=== PATIENT | female | born 1980 | race Caucasian/White ===

== ENCOUNTER 2020-02-13 18:54 | Emergency (ER) | payer OTHER, SELFPAY ==
[2020-02-13 19:35] VITALS: BP 186/101; PULSE 112; RESP 20; TEMP 37.3; O2SAT 99; BMI 24.4
--- NOTE | 2020-02-13 19:41 | ED_ITS ---
HPI - URI/Sore Throat General Chief Complaint: Upper Respiratory Symptoms Stated Complaint: covid symptoms Time Seen by Provider: 02/13/20 19:40 Source: patient Mode of arrival: ambulatory Limitations: no limitations History of Present Illness HPI Narrative: 40-year-old female with past medical history of IBS with multiple allergies to medications presents with 1 day of upper respiratory symptoms, fevers, chest tightness, and nausea. She does have abdominal pain however she has not had a bowel movement 5 days, these symptoms are consistent with her IBS and not the symptoms that she presented for. She has been taking Motrin, last Motrin dose was about an hour ago with moderate effect. She does not report any sick contacts, and does not have any other symptoms at this time MD elicited complaint: fever, cough, rhinorrhea and nasal congestion Onset (ago): day(s) (1) Consistency: constant Severity: moderate Description of mucous: clear and watery Able to tolerate fluids by mouth: Yes Relieving factors: nothing Associated symptoms: fever, myalgias, rhinorrhea and nasal congestion Treatments prior to arrival: ibuprofen Related Data Allergies Allergy/AdvReac Type Severity Reaction Status Date / Time Iodinated Contrast Media Allergy Severe SHORTNESS Unverified 11/19/19 15:40 [CONTRAST, IV] OF BREATH nut - unspecified [nut] Allergy Severe SHOCK Unverified 11/19/19 15:40 latex [LATEX] Allergy Intermediate RASH Unverified 11/19/19 15:40 amoxicillin [AMOXICILLIN] Allergy Unknown DYSPNEA, Unverified 11/19/19 15:40 vision loss penicillin G Allergy Unknown Verified 02/13/18 00:00 Penicillins [PCN] Allergy Unknown VISUAL Unverified 11/19/19 15:40 DISTURBANCES Sulfa (Sulfonamide Allergy Unknown nausea and Unverified 10/23/19 00:00 Antibiotics) vomiting sulfamethoxazole Allergy Unknown UNKNOWN Unverified 11/19/19 15:40 [From BACTRIM] trimethoprim [From BACTRIM] Allergy Unknown UNKNOWN Unverified 11/19/19 15:40 Latex Allergy Unknown redness Uncoded 02/13/18 00:00 latex gloves Allergy Unknown rash Uncoded 10/23/19 00:00 nuts Allergy Unknown Uncoded 10/23/19 00:00 Review of Systems Review of Systems: Constitutional: positive Fever, positive Chills, positive fatigue, positive M alaise ENT/Mouth: positive sore throat, positive runny nose Eyes: No Discharge Cardiovascular: No Chest Pain, positive chest tightness, No SOB Respiratory: No Cough, No Sputum, No Wheezing, No Smoke Exposure, No Dyspnea Gastrointestinal: Positive Nausea, No Vomiting, No Diarrhea, positive constipation Genitourinary: no irregular bleeding, No Dysuria, No Urinary Frequency, No Hematuria, No Urinary Incontinence, No Urgency, No Flank Pain, Musculoskeletal: positive Myalgia Skin: No rash Neuro: No Headache Yes all other systems are reviewed and are negative PENDING SALE TO [facility] Past Medical History Attestation statement: The following information was validated with the patient. Medical History Fibroids IBS (irritable bowel syndrome) Social History Social History Advance Directives: No Advance Directives Information Provided: No Physical Exam Vital Signs: Vital Signs: Last Vital Signs Temp 99.3 F 02/13/20 20:14 Pulse 123 H 02/13/20 20:14 Resp 20 02/13/20 19:35 BP 165/92 H 02/13/20 20:14 Pulse Ox 99 02/13/20 20:14 Body Mass Index 24.4 Appearance: Alert. Oriented X3. No acute distress. Eyes: Pupils equal, round and reactive to light. ENT: Pharynx normal. Neck: Normal inspection. Neck supple. CVS: Tachycardic heart rate and rhythm. Pulses normal. Respiratory: No respiratory distress. Breath sounds normal. Abdomen: Soft and nontender. Skin: Skin warm and dry. Normal skin color. Normal skin turgor. Extremities: No lower extremity edema. Neuro: No motor deficit. No sensory deficit. Course Course Course Narrative: 40-year-old female presents with upper respiratory symptoms. Plan is to treat with COVID swab, chest x-ray. 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 We will wait for chest x-ray, if ches x-ray is positive we will pursue further labs. Patient is COVID positive. Patient verbalized understanding of and agrees to plan of care for COVID-19, is aware of the state and Federal guidelines, and agrees with plan to discharge home. [facility] [place]/Sore Throat Differential Diagnosis Differential diagnosis: Likely upper respiratory infection and viral infection Medical Records Attestation: I reviewed the patient's medical records. Lab Data Attestation: I reviewed the patient's lab results. Labs: Lab Results 02/13/20 Range/Units 19:51 COVID-19 (LIYAH) Positive A (Negative) COVID-19 Clin Com See Note Imaging Data Chest x-ray: Attestation: I personally reviewed and interpreted this imaging study as follows: Radiologist's impression: EXAMINATION: XR CHEST CLINICAL INFORMATION: Chest tightness. Upper respiratory infection symptoms. COMPARISON: Chest radiograph dated 01/05/2019. TECHNIQUE: Frontal view of the chest was obtained. FINDINGS: The lungs are clear. The cardiomediastinal silhouette is normal in size. There is no pleural effusion or pneumothorax. No acute osseous abnormality. XR/XR chest 1V IMPRESSION: No acute cardiopulmonary findings. Discharge Plan Discharge Clinical Impression: Viral infection, COVID-19 Upper respiratory infection Qualifiers: URI type: unspecified viral URI Qualified Code(s): J06.9 - Acute upper respiratory infection, unspecified Patient Disposition: Home, Self-Care Instructions: Upper Respiratory Infection (ED), Viral Syndrome (ED), COVID-19 (Coronavirus Disease 2019) (ED) Additional Instructions: You were evaluated for symptoms consistent with COVID-19. You are positive for COVID-19. Your chest x-ray appears normal. Please maintain social isolation guidelines per state and Federal regulations. It is your responsibility to maintain COVID-19 guidelines. Thank you for choosing this emergency department for evaluation. Please follow-up with primary care physician as needed. Return to the emergency depart ment for any new, concerning, or worsening symptoms.
[2020-02-13 20:11] LABS: COVID-19 Test Positive (Negative); IDNOW Serial# 9DD0AD1C
[2020-02-13 20:14] VITALS: BP 165/92; PULSE 123; TEMP 37.4; O2SAT 99
== END 2020-02-13 21:08 | disposition home or self-care (01) ==
PROVIDERS: Nurse Practitioner Family; Emergency Provider Internal Medicine
DX: U07.1 COVID-19 (principal); J06.9 Acute upper respiratory infection, unspecified
CPT/HCPCS: 71045; 87635; 99283

== ENCOUNTER 2020-02-29 12:47 | Outpatient (REF) | payer OTHER, SELFPAY | END 2020-02-29 12:48 | disposition home or self-care (01) | LOC: HO.LAB 12:47 | PROVIDERS: Visit Provider Internal Medicine | DX: Z20.828 Contact with and (suspected) exposure to other viral communicable diseases (principal) | CPT/HCPCS: C9803; U0003 ==

== ENCOUNTER 2020-03-14 11:20 | Outpatient (REF) | payer OTHER, SELFPAY ==
--- NOTE | 2020-03-14 11:25 | XR_ITS ---
EXAMINATION: XR CHEST CLINICAL INFORMATION: Chest pain COMPARISON: Previous chest x-ray February 2020 TECHNIQUE: 2 views of the chest were obtained. FINDINGS: No significant abnormality is noted involving the heart, lungs, mediastinum, bony thorax or soft tissues. XR/XR chest 2V IMPRESSION: Unremarkable examination.
--- NOTE | 2020-03-14 12:37 | US_ITS ---
EXAMINATION: US VENOUS ULTRASOUND WITH DOPPLER LOWER EXTREMITY, RIGHT CLINICAL INFORMATION: Right leg pain COMPARISON: None TECHNIQUE: Ultrasound of the deep veins is performed from the hip to the calf with compression sonography and color and pulse Doppler assessment. Spectral analysis with color-flow imaging is performed. FINDINGS: There is normal venous compression and respiratory variation and augmented flow. The visualized common femoral vein, superficial femoral vein, profunda femoral vein, popliteal vein, and the trifurcation region shows no evidence of deep venous thrombosis. There is no significant popliteal fossa cyst. US/US venous duplex LE RT IMPRESSION: No DVT demonstrated in the right lower extremity.
== END 2020-03-14 11:21 | disposition home or self-care (01) ==
LOC: HO.HMGCX 11:20
PROVIDERS: PCP Internal Medicine; Visit Provider Physician Assistant
DX: R07.89 Other chest pain (principal); M79.604 Pain in right leg
CPT/HCPCS: 71046; 93971

== ENCOUNTER 2020-05-26 07:02 | Outpatient (REF) | payer OTHER, SELFPAY ==
[2020-05-26 11:17] LABS: Hematocrit 38.6 % (37-47); Hemoglobin 12.3 g/dl (12.0-16.0); Mean Corpuscular HGB Conc 31.9 g/dl (31.0-35.0); Mean Corpuscular Hemoglobin 28.5 pg (27.0-33.0); Mean Corpuscular Volume 89.4 fL (80-98); Mean Platelet Volume 11.4 fL (9.4-12.3); Platelet Count 309 X10*3/uL (160-400); Red Blood Count 4.32 X10*6/uL (4.20-5.50); White Blood Count 8.1 X10*3/uL (4.8-10.8)
[2020-05-26 11:29] LABS: Glucose Urine UA NEG (NEG); Leukocyte Esterase Urine NEG (NEG); Nitrite Urine NEG (NEG); PH 6.5 (5.0-8.0); Urine Blood NEG (NEG); Urine Ketones NEG (NEG); Urine Protein NEG (NEG-TRACE)
[2020-05-26 11:37] LABS: Appearance Urine HAZY; Color Urine YELLOW
[2020-05-26 11:59] LABS: Alanine Aminotransferase 11 U/L (0-31); Albumin Level 4.5 g/dL (3.5-5.0); Alkaline Phosphatase 61 U/L (39-117); Anion Gap 16 (12-20); Aspartate Amino Transferase 14 U/L (5-31); Bilirubin Total 0.5 mg/dL (0.0-1.0); Blood Urea Nitrogen 12 mg/dL (9-16); Calcium 8.8 mg/dL (8.4-10.2); Carbon Dioxide 26 mmol/L (22-29); Chloride 101 mmol/L (96-108); Cholesterol 284 mg/dL; Estimated Glomerular Filt Rate > 60; Glucose Fasting 90 mg/dL (60-99); HDL Cholesterol 57 mg/dL; LDL Cholesterol Calculated 200 mg/dl; Potassium 4.1 mmol/L (3.3-5.1); Sodium 139 mmol/L (135-145); Total Protein 7.2 g/dL (6.5-8.0); Triglycerides 138 mg/dL
[2020-05-26 12:01] LABS: TSH reflex Free T4 1.12 uIU/mL (0.32-4.0)
[2020-05-26 12:29] LABS: Bacteria Urine 1+ /LPF; Mucus Urine 1+ /LPF; RBC Urine 0-2 /HPF (0); Squamous Epithelial Cell Urine 2+ /LPF; WBC Urine 0-2 /HPF (0-4)
== END 2020-05-26 07:03 | disposition home or self-care (01) ==
LOC: HO.HMGCLDS 07:02
PROVIDERS: PCP Internal Medicine; Visit Provider Internal Medicine
DX: Z00.00 Encounter for general adult medical examination without abnormal findings (principal); Z13.220 Encounter for screening for lipoid disorders; Z13.29 Encounter for screening for other suspected endocrine disorder
CPT/HCPCS: 36415; 80053; 80061; 81001; 84443; 85027

== ENCOUNTER 2020-05-27 12:04 | Outpatient (REF) | payer OTHER, SELFPAY ==
--- NOTE | ~2020-05-27 | US_ITS ---
EXAMINATION: US EXTRARENAL NONVASCULAR CLINICAL INFORMATION: Localized swelling, mass and lump. COMPARISON: None TECHNIQUE: Limited ultrasound imaging through the distal thigh suprapatella was performed. Patient indicates palpable lesion. FINDINGS: Limited imaging through the left distal thigh/suprapatellar area reveals an anechoic fluid collection measuring 1.3 x 1.4 x 0.75 cm. This probably lies within the suprapatellar bursa. US/US extremity nonvascular dubois IMPRESSION: Likely suprapatellar bursal fluid collection. It measures maximum 1.4 cm.
== END 2020-05-27 12:05 | disposition home or self-care (01) ==
LOC: HO.HMGCX 12:04
PROVIDERS: Visit Provider Internal Medicine
DX: R22.42 Localized swelling, mass and lump, left lower limb (principal)
CPT/HCPCS: 76882

== ENCOUNTER 2020-10-28 14:06 | Outpatient (REF) | payer OTHER, SELFPAY ==
--- NOTE | ~2020-10-28 | MM_ITS ---
EXAMINATION: MM SCREENING DIGITAL BREAST TOMOSYNTHESIS, BILATERAL CLINICAL INFORMATION: Screening. Asymptomatic. The lifetime risk of breast cancer based on the Tyrer-Cuzick Model is 12%. COMPARISON: Mammography: 10/23/2019, 10/17/2018 (baseline). TECHNIQUE: Digital breast tomosynthesis is performed in both the craniocaudal and mediolateral oblique views along with computer-aided detection (CAD). Synthesized 2D images are generated from the tomosynthesis. FINDINGS: There are scattered areas of fibroglandular density (ACR BI-RADS breast composition Category b). There are no significant masses, abnormal calcifications, or other abnormalities. Parenchymal pattern is similar to prior studies. Again, there are some grouped dermal calcifications bilateral posterior medial breasts. MM/MM tomosynthesis screening BI IMPRESSION: No mammographic evidence of malignancy. ASSESSMENT: BI-RADS 2: Benign RECOMMENDATION: Routine annual mammography screening. This patient's information was entered into a reminder system with a target due date for their next mammogram.
== END 2020-10-28 14:07 | disposition home or self-care (01) ==
LOC: HO.MAMMO 14:06
PROVIDERS: PCP Internal Medicine; Visit Provider Internal Medicine
DX: Z12.31 Encounter for screening mammogram for malignant neoplasm of breast (principal)
CPT/HCPCS: 77063; 77067

== ENCOUNTER 2021-02-04 08:51 | Outpatient (REF) | payer OTHER, SELFPAY ==
[2021-02-04 10:03] LABS: Alanine Aminotransferase 13 U/L (0-31); Albumin Level 4.6 g/dL (3.5-5.0); Alkaline Phosphatase 70 U/L (39-117); Anion Gap 15 (12-20); Aspartate Amino Transferase 17 U/L (5-31); Bilirubin Total 0.8 mg/dL (0.0-1.0); Blood Urea Nitrogen 14 mg/dL (9-16); Calcium 9.6 mg/dL (8.4-10.2); Carbon Dioxide 26 mmol/L (22-29); Chloride 101 mmol/L (96-108); Cholesterol 262 mg/dL; Estimated Glomerular Filt Rate > 60; Glucose Fasting 104 mg/dL (60-99); HDL Cholesterol 43 mg/dL; LDL Cholesterol Calculated 178 mg/dl; Potassium 3.7 mmol/L (3.3-5.1); Sodium 138 mmol/L (135-145); Total Protein 7.7 g/dL (6.5-8.0); Triglycerides 205 mg/dL
== END 2021-02-04 08:52 | disposition home or self-care (01) ==
LOC: HO.LAB 08:51
PROVIDERS: PCP Internal Medicine; Visit Provider Internal Medicine
DX: E78.5 Hyperlipidemia, unspecified (principal); I10 Essential (primary) hypertension
CPT/HCPCS: 36415; 80053; 80061

== ENCOUNTER 2021-07-27 11:36 | Emergency (ER) | payer OTHER, SELFPAY ==
--- NOTE | ~2021-07-27 | XR_ITS ---
EXAMINATION: XR CHEST CLINICAL INFORMATION: Dizziness and difficulty breathing COMPARISON: 03/14/2020 TECHNIQUE: 2 views of the chest were obtained. FINDINGS: Lungs clear. Heart and pulmonary vessels are normal. venetian blind installer leads are present. XR/XR chest 2V IMPRESSION: No active disease.
[2021-07-27 11:47] VITALS: BP 166/72; BP 190/107; PULSE 104; PULSE 84; RESP 18; TEMP 36.6; O2SAT 100; O2SAT 99; BMI 24.7
--- NOTE | 2021-07-27 11:52 | ED.DIZZY ---
HPI - Dizziness General Chief Complaint: Dizziness Stated Complaint: HIGH BP, 184/99 PER EMS Time Seen by Provider: 07/27/21 11:46 Source: patient and EMS Mode of arrival: EMS Limitations: no limitations History of Present Illness HPI Narrative: 41 yo female with history of HTN here with complaints of high blood pressure, feeing dizzy, chest burning with nausea and sweaty feeling which began 2 hours ago while driving. Patient tells me that she forgot to take her blood pressure medication this morning. She denies any associated vomiting, shortness of breath, leg swelling or leg pain. Related Data Previous Rx's Medication Instructions Recorded lisinopril 10 mg tablet 10 mg PO DAILY #90 tab 05/19/21 Allergies Allergy/AdvReac Type Severity Reaction Status Date / Time Iodinated Contrast Media Allergy Severe SHORTNESS Verified 07/27/21 12:18 [CONTRAST, IV] OF BREATH nut - unspecified [nut] Allergy Severe SHOCK Verified 07/27/21 12:18 latex [LATEX] Allergy Intermediate RASH Verified 07/27/21 12:18 amoxicillin [AMOXICILLIN] Allergy Unknown DYSPNEA, Verified 07/27/21 12:18 vision loss penicillin G Allergy Unknown unknown Verified 07/27/21 12:18 Penicillins [PCN] Allergy Unknown VISUAL Verified 07/27/21 12:18 DISTURBANCES Sulfa (Sulfonamide Allergy Unknown nausea and Verified 07/27/21 12:18 Antibiotics) vomiting sulfamethoxazole Allergy Unknown UNKNOWN Verified 07/27/21 12:18 [From BACTRIM] trimethoprim [From BACTRIM] Allergy Unknown UNKNOWN Verified 07/27/21 12:18 Review of Systems Review of Systems: Yes all other systems are reviewed and are negative Constitutional: Constitutional: Reports no additional constitutional complaints, Denies body ache(s), Denies chills, Denies fever(s), Denies headache(s) and Denies weakness Eyes: Eyes: Reports no additional eye complaints and Denies change in vision ENT: Reports system reviewed and no additional complaints, except as documented, Reports dizziness, Denies headache(s), Denies nasal congestion, Denies nasal discharge and Denies neck pain Cardiovascular: Cardiovascular: Reports no additional cardiovascular complaints, Reports chest pain, Denies leg edema and Denies dyspnea Respiratory: Respiratory: Reports no additional respiratory complaints, Denies cough and Denies dyspnea Gastrointestinal: Gastrointestinal: Reports no additional gastrointestinal complaints, Denies abdominal pain, Denies diarrhea, Reports nausea and Denies vomiting Genitourinary: Genitourinary: Reports no additional female genitourinary complaints and Denies urinary incontinence Musculoskeletal: Musculoskeletal: Reports no additional musculoskeletal complaints, Denies back pain, Denies arthralgias, Denies joint swelling, Denies neck pain, Denies numbness and Denies tingling Integumentary/Breasts: Skin/Breast: Reports system reviewed and no additional complaints, except as docu and Denies rash Neurologic: Reports system reviewed and no additional complaints, except as documented, Denies Abnormal speech present, Reports dizziness, Denies headache(s), Denies numbness, Denies tingling and Denies weakness PMFSH Past Medical History Attestation statement: The following information was validated with the patient. Source: old records reviewed and nursing notes reviewed Medical History Annual physical exam Anxiety Fibroids GERD (gastroesophageal reflux disease) HTN (hypertension) Hyperlipidemia IBS (irritable bowel syndrome) Kidney stones Migraine aura without headache Subcutaneous mass of left lower leg Surgical History History of lithotripsy History of skin cancer Family History Family History Father CVD (cardiovascular disease) Mother No problems noted. Maternal Aunt Breast cancer Brother No problems noted. Social History Social History Housing: House Alcohol intake: current Alcohol intake frequency: a few times a week Patient Tobacco Use Status: Former Tobacco user (15 years ago) e-Cigarette/Vaping Use: Never Used Advance Directives: No Advance Directives Information Provided: No Current occupational status: employed Physical Exam Vital Signs: Vital Signs: Last Vital Signs Temp 98.2 F 07/27/21 15:08 Pulse 75 07/27/21 15:08 Resp 16 07/27/21 15:08 BP 148/54 H 07/27/21 15:08 Pulse Ox 98 07/27/21 15:08 BMI result Body Mass Index 24.7 Const: General: cooperative, healthy appearing, comfortable and no acute distress Orientation/consciousness: patient oriented x3 Limitations: no limitations HEENT: Head: Yes normal to inspection Ears: hearing grossly normal bilaterally and TM's normal bilaterally General nose exam: Normal external nose present Face and sinus: Yes normal facial exam Mouth: Normal oral and palatal mucosa present Throat: Yes posterior oropharynx normal, Yes tonsils normal and Yes uvula midline Eyes: General: appearance normal, both eyes and all related structures Pupils: Equal, round and reactive pupils present Neck: Neck: Yes normal visual inspection Chest: Chest palpation & inspection: normal inspection of the chest Resp: Effort & Inspection: normal respiratory effort Auscultation: clear to auscultation bilaterally Cardio: Rate: regular rate Rhythm: regular rhythm Peripheral pulses: Peripheral pulses 2+ throughout GI: Inspection: Yes normal to inspection Palpation (GI): Soft to palpation and nontender Auscultation: normal bowel sounds Back/Spine/Pelvis: Thoracic/Lumbar Spine: thoracic and lumbar spine normal to inspection Skin: General skin exam: no rashes or lesions noted Neuro: General: patient oriented x3, no focal motor deficits and normal sensation to monofilament Cranial nerves: Yes Equal, round and reactive pupils present Cognition (Neuro): normal cognition Speech: No Abnormal speech present Gait exam (Neuro): Normal gait present Motor exam (neuro): 5/5 motor strength present throughout Extrem: General: Yes normal to inspection, Yes no pedal edema and Yes no calf tenderness Course Course Course Narrative: 41 yo female here dizziness, chest burning, nausea, diaphoresis x 2 hrs which started while driving. Will check EKG, labs including troponin x2, CXR Will give ASA, patient dose of lisinopril Reevaluation(s) Reevaluation #1: EKG shows no ischemic changes. Labs and chest x-ray are unremarkable. Plan for repeat troponin. Blood pressure now 142/82. Patient tells me she is feeling improved Time: 13:45 Reevaluation #2: Repeat troponin unchanged. Low concern for ACS with 2- troponins, EKG which shows no ischemic changes. ?symptoms blood pressure related. Recommend follow-up with primary care doctor. Reviewed worrisome signs and symptoms of when to return to the emergency department. Comfortable discharge home. Time: 15:30 MDM - Dizziness MDM Narrative Medical decision making narrative: acs, hypertensive urgency PE-low concern w/ no clinical findings for DVT, no hypoxia, no tachycardia, no tachypnea Medical Records Attestation: I reviewed the patient's medical records. Lab Data Attestation: I reviewed the patient's lab results. Result diagrams: 07/27/21 12:36 07/27/21 12:36 Labs: Lab Results 07/27/21 07/27/21 07/27/21 Range/Units 12:36 12:36 12:36 WBC 6.8 (4.8-10.8) X10*3/uL RBC 4.01 L (4.20-5.50) X10*6/uL Hgb 11.1 L (12.0-16.0) g/dl Hct 34.0 L (37.0-47.0) % MCV 84.8 (80.0-98.0) fL MCH 27.7 (27.0-33.0) pg MCHC 32.6 (31.0-35.0) g/dl RDW 13.7 (11.0-16.0) % Plt Count 259 (160-400) X10*3/uL MPV 10.7 (9.4-12.3) fL Immature Gran % (Auto) 0.4 (0.0-0.4) % Neut % (Auto) 76.7 H (45-73) % Lymph % (Auto) 16.7 L (20-40) % [place] % (Auto) 4.8 (2-11) % Eos % (Auto) 1.0 (0-4) % Baso % (Auto) 0.4 (0-2) % Lymph # (Auto) 1.1 L (1.2-4.9) X10*3/uL [place] # (Auto) 0.3 (0.1-1.2) X10*3/uL Eos # (Auto) 0.1 (0.0-0.4) X10*3/uL Baso # (Auto) 0.0 (0.0-0.2) X10*3/uL Abs Immat Gran (auto) 0.03 (0.00-0.03) X10*3/uL Absolute Neuts (auto) 5.2 (2.0-8.3) x10*3/uL Absolute Nucleated RBC 0.000 (0.0-0.012) X10*3/uL Nucleated RBC % (auto) 0.0 (0.0-0.2) /100WBC PT 11.4 (9.9-13.0) SEC INR 1.0 (0.9-1.1) Sodium 138 (135-145) mmol/L Potassium 3.8 (3.3-5.1) mmol/L Chloride 106 (96-108) mmol/L Carbon Dioxide 24 (22-29) mmol/L Anion Gap 12 (12-20) BUN 8 L (9-16) mg/dL Creatinine 0.68 (0.5-1.4) mg/dL Estim Creat Clear Calc 95.7 Estimated GFR > 60 Random Glucose 102 (60-115) mg/dL Calcium 8.8 D (8.4-10.2) mg/dL Magnesium 2.0 (1.6-2.6) mg/dL Total Bilirubin 0.7 (0.0-1.0) mg/dL Direct Bilirubin 0.2 (0.0-0.5) mg/dL AST 14 (5-31) U/L ALT 11 (0-31) U/L Alkaline Phosphatase 52 D (39-117) U/L Troponin I High Sens (<3.5-17.0) ng/L Total Protein 6.8 (6.5-8.0) g/dL Albumin 4.1 (3.5-5.0) g/dL 07/27/21 07/27/21 Range/Units 12:36 14:41 WBC (4.8-10.8) X10*3/uL RBC (4.20-5.50) X10*6/uL Hgb (12.0-16.0) g/dl Hct (37.0-47.0) % MCV (80.0-98.0) fL MCH (27.0-33.0) pg MCHC (31.0-35.0) g/dl RDW (11.0-16.0) % Plt Count (160-400) X10*3/uL MPV (9.4-12.3) fL Immature Gran % (Auto) (0.0-0.4) % Neut % (Auto) (45-73) % Lymph % (Auto) (20-40) % [place] % (Auto) (2-11) % Eos % (Auto) (0-4) % Baso % (Auto) (0-2) % Lymph # (Auto) (1.2-4.9) X10*3/uL [place] # (Auto) (0.1-1.2) X10*3/uL Eos # (Auto) (0.0-0.4) X10*3/uL Baso # (Auto) (0.0-0.2) X10*3/uL Abs Immat Gran (auto) (0.00-0.03) X10*3/uL Absolute Neuts (auto) (2.0-8.3) x10*3/uL Absolute Nucleated RBC (0.0-0.012) X10*3/uL Nucleated RBC % (auto) (0.0-0.2) /100WBC PT (9.9-13.0) SEC INR (0.9-1.1) Sodium (135-145) mmol/L Potassium (3.3-5.1) mmol/L Chloride (96-108) mmol/L Carbon Dioxide (22-29) mmol/L Anion Gap (12-20) BUN (9-16) mg/dL Creatinine (0.5-1.4) mg/dL Estim Creat Clear Calc Estimated GFR Random Glucose (60-115) mg/dL Calcium (8.4-10.2) mg/dL Magnesium (1.6-2.6) mg/dL Total Bilirubin (0.0-1.0) mg/dL Direct Bilirubin (0.0-0.5) mg/dL AST (5-31) U/L ALT (0-31) U/L Alkaline Phosphatase (39-117) U/L Troponin I High Sens < 3.5 < 3.5 (<3.5-17.0) ng/L Total Protein (6.5-8.0) g/dL Albumin (3.5-5.0) g/dL Imaging Data Chest x-ray: Attestation: I personally reviewed and interpreted this imaging study as follows: Radiologist's impression: [address] [address] XRay Report Signed Patient: Eliazar Morris MR#: [id number] : 1980 Acct:[id number] Age/Sex: 41 / F ADM Date: 07/27/21 Loc: HO.ED Attending Dr: Ordering Physician: Merna Razo NP Date of Service: 07/27/21 Procedure(s): XR chest 2V Accession Number(s): [id number] cc: Merna Razo NP~ EXAMINATION: XR CHEST CLINICAL INFORMATION: Dizziness and difficulty breathing COMPARISON: 03/14/2020 TECHNIQUE: 2 views of the chest were obtained. FINDINGS: Lungs clear. Heart and pulmonary vessels are normal. photoengraving etcher leads are present. XR/XR chest 2V IMPRESSION: No active disease. ECG Data Attestation: I personally reviewed and interpreted this ECG as follows: ECG interpretation date: 07/27/21 ECG interpretation time: 11:58 Interpretation: Normal sinus rhythm with rate 80, normal IN, normal QRS, normal QT Discharge Plan Discharge Clinical Impression: Chest pain, HTN (hypertension) Patient Disposition: Home, Self-Care Instructions: Chest Pain (DC), Chronic Hypertension (DC) Additional Instructions: Your EKG, blood work and chest x-ray shows that you are at low risk for cardiac event You should follow-up with your primary care doctor after todays visit Always take your blood pressure medication Prescriptions: No Action lisinopril 10 mg tablet 10 mg PO DAILY Qty: 90 3RF Referrals: Hiral Calix MD [Primary Care Provider] - 1 week (ER follow-up visit) Interventions: ED Discharge Assessment Last Done: 07/27/21 15:16 Discharge Date/Time: 07/27/21 15:20
--- NOTE | 2021-07-27 11:53 | ECG_ITS ---
Test Reason : chest pain Blood Pressure : / mmHG Vent. Rate : 080 BPM Atrial Rate : 080 BPM P-R Int : 122 ms QRS Dur : 092 ms QT Int : 372 ms P-R-T Axes : 039 053 024 degrees QTc Int : 429 ms Normal sinus rhythm Normal ECG When compared with ECG of 09-OCT-2019 15:32, No significant change was found Referred By: Generic ED Physician Electronically Signed By:James Coats
[2021-07-27 12:17] VITALS: BP 165/76; PULSE 89; RESP 18; O2SAT 100
[2021-07-27] MEDS: lisinopriL 10 MG TABLET PO (12:18)
[2021-07-27] MEDS: Aspirin 81 MG TAB.CHEW 324 MG PO (12:18)
[2021-07-27 12:40] LABS: MANUAL DIFF FLAG NO
[2021-07-27 12:41] LABS: Basophils Percent Auto 0.4 % (0-2); Eosinophils Absolute Auto 0.1 X10*3/uL (0.0-0.4); Hemoglobin 11.1 g/dl (12.0-16.0); Imm Gran Abs Auto 0.03 X10*3/uL (0.00-0.03); Imm Gran Pct Auto 0.4 % (0.0-0.4); Lymphocytes Absolute Auto 1.1 X10*3/uL (1.2-4.9); Lymphocytes Percent Auto 16.7 % (20-40); Mean Corpuscular HGB Conc 32.6 g/dl (31.0-35.0); Mean Corpuscular Hemoglobin 27.7 pg (27.0-33.0); Mean Corpuscular Volume 84.8 fL (80.0-98.0); Mean Platelet Volume 10.7 fL (9.4-12.3); Monocytes Absolute Auto 0.3 X10*3/uL (0.1-1.2); Monocytes Percent Auto 4.8 % (2-11); Neutrophils Absolute Auto 5.2 x10*3/uL (2.0-8.3); Neutrophils Percent Auto 76.7 % (45-73); Platelet Count 259 X10*3/uL (160-400); Red Blood Count 4.01 X10*6/uL (4.20-5.50); Red Cell Distribution Width 13.7 % (11.0-16.0); White Blood Count 6.8 X10*3/uL (4.8-10.8)
[2021-07-27 12:46] LABS: Prothrombin Time 11.4 SEC (9.9-13.0)
[2021-07-27 12:58] VITALS: BP 150/74; PULSE 79; RESP 16; O2SAT 97
--- NOTE | 2021-07-27 12:59 | PC.NURSE ---
Pt alert and oriented x4, calm and cooperative. Pt states chest pain has improved but persists at 3/10, describes pain as burning and states I feel like this is heart burn . Pt reports improvement with dizziness stating it is coming and going in waves . Pt OOB to bathroom, urinated without issues. Ambulated well, stating dizziness improved from earlier. BP trending down now, 150/70. IV intact, not infusing at this time. Pt resting in stretcher, will monitor.
[2021-07-27 13:00] LABS: Alanine Aminotransferase 11 U/L (0-31); Albumin Level 4.1 g/dL (3.5-5.0); Alkaline Phosphatase 52 U/L (39-117); Anion Gap 12 (12-20); Aspartate Amino Transferase 14 U/L (5-31); Bilirubin Direct 0.2 mg/dL (0.0-0.5); Bilirubin Total 0.7 mg/dL (0.0-1.0); Blood Urea Nitrogen 8 mg/dL (9-16); Calcium 8.8 mg/dL (8.4-10.2); Carbon Dioxide 24 mmol/L (22-29); Chloride 106 mmol/L (96-108); Creatinine Clr Calc Pharmacy 95.7; Estimated Glomerular Filt Rate > 60; Glucose Random 102 mg/dL (60-115); Potassium 3.8 mmol/L (3.3-5.1); Sodium 138 mmol/L (135-145); Total Protein 6.8 g/dL (6.5-8.0)
[2021-07-27 13:06] LABS: Troponin-I High Sensitivity < 3.5 ng/L (<3.5-17.0)
[2021-07-27 13:37] VITALS: BP 142/82; PULSE 80; RESP 14; O2SAT 98
[2021-07-27 15:08] VITALS: BP 148/54; PULSE 75; RESP 16; TEMP 36.8; O2SAT 98
[2021-07-27 15:11] LABS: Troponin-I High Sensitivity < 3.5 ng/L (<3.5-17.0)
== END 2021-07-27 15:20 | disposition home or self-care (01) ==
PROVIDERS: Nurse Practitioner Family; Emergency Provider Emergency Medicine; PCP Internal Medicine
DX: R07.9 Chest pain, unspecified (principal); I10 Essential (primary) hypertension; Z79.899 Other long term (current) drug therapy
CPT/HCPCS: 36415; 71046; 80048; 80076; 83735; 84484; 85025; 85610; 93005; 99283; 99284

== ENCOUNTER 2021-08-29 07:14 | Outpatient (REF) | payer OTHER, SELFPAY ==
[2021-08-29 07:48] LABS: Hematocrit 34.7 % (37.0-47.0); Hemoglobin 11.3 g/dl (12.0-16.0); Mean Corpuscular HGB Conc 32.6 g/dl (31.0-35.0); Mean Corpuscular Hemoglobin 27.8 pg (27.0-33.0); Mean Corpuscular Volume 85.5 fL (80.0-98.0); Mean Platelet Volume 10.8 fL (9.4-12.3); Platelet Count 279 X10*3/uL (160-400); Red Blood Count 4.06 X10*6/uL (4.20-5.50); Red Cell Distribution Width 14.2 % (11.0-16.0); White Blood Count 7.5 X10*3/uL (4.8-10.8)
[2021-08-29 08:03] LABS: Appearance Urine HAZY; Color Urine YELLOW; Glucose Urine UA NEG (NEG); Leukocyte Esterase Urine NEG (NEG); Nitrite Urine NEG (NEG); PH 5.5 (5.0-8.0); Specific Gravity - Urine 1.025 (1.005-1.025); Urine Blood NEG (NEG); Urine Ketones NEG (NEG); Urine Protein NEG (NEG-TRACE)
[2021-08-29 08:24] LABS: Bacteria Urine 1+ /LPF; RBC Urine 0 /HPF (0); Squamous Epithelial Cell Urine 2+ /LPF; Urine Talc Crystals TRACE /LPF; WBC Urine 0 /HPF (0-4)
[2021-08-29 08:34] LABS: Alanine Aminotransferase 11 U/L (0-31); Albumin Level 4.1 g/dL (3.5-5.0); Alkaline Phosphatase 65 U/L (39-117); Anion Gap 12 (12-20); Aspartate Amino Transferase 14 U/L (5-31); Bilirubin Total 0.5 mg/dL (0.0-1.0); Blood Urea Nitrogen 16 mg/dL (9-16); Calcium 8.7 mg/dL (8.4-10.2); Carbon Dioxide 26 mmol/L (22-29); Chloride 103 mmol/L (96-108); Cholesterol 227 mg/dL; Estimated Glomerular Filt Rate > 60; Glucose Fasting 95 mg/dL (60-99); HDL Cholesterol 62 mg/dL; LDL Cholesterol Calculated 143 mg/dl; Potassium 4.2 mmol/L (3.3-5.1); Sodium 137 mmol/L (135-145); Total Protein 6.5 g/dL (6.5-8.0); Triglycerides 114 mg/dL
[2021-08-29 08:56] LABS: TSH reflex Free T4 1.45 uIU/mL (0.32-4.0)
== END 2021-08-29 07:15 | disposition home or self-care (01) ==
LOC: HO.LAB 07:14
PROVIDERS: Visit Provider Internal Medicine
DX: E78.5 Hyperlipidemia, unspecified (principal); I10 Essential (primary) hypertension
CPT/HCPCS: 36415; 80053; 80061; 81001; 84443; 85027

== ENCOUNTER 2021-08-31 11:27 | Outpatient (REF) | payer OTHER, SELFPAY | END 2021-08-31 11:28 | disposition home or self-care (01) | LOC: HO.HMGCLDS 11:27 | PROVIDERS: Visit Provider Internal Medicine | DX: R30.0 Dysuria (principal) | CPT/HCPCS: 87086 ==

== ENCOUNTER 2021-10-02 13:57 | Outpatient (REF) | payer OTHER, SELFPAY ==
[2021-10-02 15:36] LABS: Anion Gap 15 (12-20); Blood Urea Nitrogen 10 mg/dL (9-16); Calcium 9.3 mg/dL (8.4-10.2); Carbon Dioxide 26 mmol/L (22-29); Chloride 101 mmol/L (96-108); Estimated Glomerular Filt Rate > 60; Glucose Random 93 mg/dL (60-115); Iron 80 mcg/dL (30-160); Percent Iron Saturation 19 % (15-50); Potassium 4.2 mmol/L (3.3-5.1); Sodium 138 mmol/L (135-145); Total Iron Binding Capacity 411 mcg/dL (228-428); Unsaturated Iron Binding 331 ug/dL
[2021-10-02 16:12] LABS: Folate 7.2 ng/mL (> or = 4.0); Vitamin B12 329 pg/mL (200-900)
== END 2021-10-02 13:58 | disposition home or self-care (01) ==
LOC: HO.HMGCLDS 13:57
PROVIDERS: PCP Internal Medicine; Visit Provider Internal Medicine
DX: D64.9 Anemia, unspecified (principal); I10 Essential (primary) hypertension
CPT/HCPCS: 36415; 80048; 82607; 82746; 83540

== ENCOUNTER 2021-10-09 13:44 | Outpatient (REF) | payer OTHER, SELFPAY ==
--- NOTE | ~2021-10-09 | US_ITS ---
EXAMINATION: US THYROID CLINICAL INFORMATION: Nontoxic goiter, unspecified. COMPARISON: None TECHNIQUE: Linear transducer grayscale and color Doppler examination with attention to the region of the thyroid. FINDINGS: SIZE: Measurements of the thyroid lobes and nodules are given in sagittal, anteroposterior and transverse dimensions respectively. Right Thyroid Lobe: 5.4 x 1.5 x 2.0 cm, volume 8.5 mL. Parenchyma: The gland echotexture is homogeneous. Thyroid vascularity is normal. Left Thyroid Lobe: 5.4 x 1.4 x 2.1 cm, volume 8.3 mL. Parenchyma: The gland echotexture is homogeneous. Thyroid vascularity is normal. Isthmus: 0.2 cm in maximum AP dimension. Estimated total number of nodules greater than or equal to 1 cm: 0. Cloth Bleaching Range Back Tender nodules are described as follows: 1. Location: Left superior medial. Size: 0.9 x 0.7 x 0.7 cm, volume 0.23 mL. Nodule characteristics: Composition: Solid/almost completely solid (2). Echogenicity: Hypoechoic (2). Shape: Not taller than wide (0). Margins: Smooth (0). Echogenic Foci: Peripheral calcifications (2). ACR TI-RADS total points: 6 ACR TI-RADS category: 4 2. Location: Left inferior. Size: 0.5 x 0.3 x 0.4 cm, volume 0.03 mL. Nodule characteristics: Composition: Spongiform (0). Echogenicity: Anechoic (0). Shape: Not taller than wide (0). Margins: Smooth (0). Echogenic Foci: None (0). ACR TI-RADS total points: 0 ACR TI-RADS category: 1 3. Location: Right mid. Size: 0.5 x 0.3 x 0.5 cm, volume 0.04 mL. Nodule characteristics: Composition: Cystic(0). ACR TI-RADS total points: 0 ACR TI-RADS category: 1 NODES: No lymphadenopathy is seen in the tissue surrounding the thyroid gland. US/US thyroid IMPRESSION: Small bilateral thyroid nodules. Ultrasound follow-up recommended. TR4 (4-6 points): FNA if more than or equal to 1.5 cm in maximum dimension, followup ultrasound in 1, 2, 3 and 5 years if 1 to 1.4 cm in maximum dimension. ACR TI-RADS RECOMMENDATION REFERENCE: Ultrasound-guided fine-needle aspiration, followup ultrasound, no further follow up. * TR1 (0 point) and TR 2 (2 points): No FNA or follow up * TR3 (3 points): FNA if more than or equal to 2.5 cm in maximum dimension, followup ultrasound in 1, 3 and 5 years if 1.5 to 2.4 cm in maximum dimension. * TR4 (4-6 points): FNA if more than or equal to 1.5 cm in maximum dimension, followup ultrasound in 1, 2, 3 and 5 years if 1 to 1.4 cm in maximum dimension. * TR5 (more than or equal to 7 points): FNA if more than or equal to 1 cm in maximum dimension, followup ultrasound every year for 5 years if 0.5 to 0.9 cm in maximum dimension. * TR3, TR4 or TR5 nodules that are below the size threshold for follow up receive no follow up.
--- NOTE | ~2021-10-09 | US_ITS ---
EXAMINATION: US RETROPERITONEAL LIMITED (RENAL ONLY) CLINICAL INFORMATION: Calculus of kidney. COMPARISON: CT abdomen and pelvis 11/10/2019. Renal ultrasound 01/27/2019. Renal ultrasound with bladder 09/10/2018. X-ray abdomen 03/25/2017. TECHNIQUE: Real-time imaging of the kidneys. FINDINGS: RIGHT KIDNEY: 10.4 x 4.1 x 5.7 cm (SAG x AP x TRV). The kidney is normal in size, contour, and echogenicity. Renal cortical thickness is normal. No calculi or focal parenchymal lesions. No hydronephrosis. LEFT KIDNEY: 10.3 x 5.7 x 4.9 cm (SAG x AP x TRV). The kidney is normal in size, contour, and echogenicity. Renal cortical thickness is normal. No calculi or focal parenchymal lesions. No hydronephrosis. US/US renal BI IMPRESSION: Normal renal ultrasound.
== END 2021-10-09 13:45 | disposition home or self-care (01) ==
LOC: HO.HMGCX 13:44
PROVIDERS: PCP Internal Medicine; Visit Provider Internal Medicine
DX: N20.0 Calculus of kidney (principal); E04.9 Nontoxic goiter, unspecified
CPT/HCPCS: 76536; 76775

== ENCOUNTER 2021-10-09 13:45 | Outpatient (REF) | payer OTHER, SELFPAY | END 2021-10-09 13:46 | disposition home or self-care (01) | LOC: HO.HMGCX 13:45 | PROVIDERS: PCP Internal Medicine; Visit Provider Internal Medicine | DX: Z13.89 Encounter for screening for other disorder (principal) ==

== ENCOUNTER 2021-10-31 14:32 | Outpatient (REF) | payer OTHER, SELFPAY ==
--- NOTE | ~2021-10-31 | MM_ITS ---
EXAMINATION: MM SCREENING DIGITAL BREAST TOMOSYNTHESIS, BILATERAL CLINICAL INFORMATION: Screening. Asymptomatic. The lifetime risk of breast cancer based on the Tyrer-Cuzick Model is 11.7%. COMPARISON: Mammography: October 28, 2020 and studies dating back to October 17, 2018 TECHNIQUE: Digital breast tomosynthesis is performed in both the craniocaudal and mediolateral oblique views along with computer-aided detection (CAD). Synthesized 2D images are generated from the tomosynthesis. FINDINGS: The breasts are heterogeneously dense, which may obscure small masses (ACR BI-RADS breast composition Category c). There are no significant masses, abnormal calcifications, or other abnormalities. MM/MM tomosynthesis screening BI IMPRESSION: No significant changes from prior exam. ASSESSMENT: BI-RADS 1: Negative RECOMMENDATION: Routine annual mammography screening. This patient's information was entered into a reminder system with a target due date for their next mammogram.
== END 2021-10-31 14:33 | disposition home or self-care (01) ==
LOC: HO.MAMMO 14:32
PROVIDERS: PCP Internal Medicine; Visit Provider Internal Medicine
DX: Z12.31 Encounter for screening mammogram for malignant neoplasm of breast (principal)
CPT/HCPCS: 77063; 77067

== ENCOUNTER 2022-10-22 09:15 | Outpatient (AMB) | payer OTHER, SELFPAY ==
[2022-10-22 10:06] VITALS: BP 132/78; PULSE 76; TEMP 36.5; O2SAT 97; BMI 25.0
--- NOTE | 2022-10-22 10:06 | MHC.OFFWIV ---
Intake Vital Signs 10/22/22 10:06 Height 5 ft 3 in Weight 141 lb BMI 25.0 BP 132/78 Blood Pressure Location Lt brachial Position Sitting Pulse 76 Pulse Source Pulse Oximeter Temp 97.7 F Temp Source Temporal Artery Scan Pulse Oximetry (%) 97 Intake Visit Reasons: EP, Dizziness, BP Med review Intake Note: pt is here for c/o dizziness, ran out of BP medication Patient Tobacco Use Status: Current someday Tobacco user (15 years ago) Allergies Iodinated Contrast Media [CONTRAST, IV] Allergy (Severe, Verified 10/22/22 10:49) SHORTNESS OF BREATH nut - unspecified [nut] Allergy (Severe, Verified 10/22/22 10:49) SHOCK latex [LATEX] Allergy (Intermediate, Verified 10/22/22 10:49) RASH amoxicillin [AMOXICILLIN] Allergy (Unknown, Verified 10/22/22 10:49) DYSPNEA, vision loss penicillin G Allergy (Unknown, Verified 10/22/22 10:49) unknown Penicillins [PCN] Allergy (Unknown, Verified 10/22/22 10:49) VISUAL DISTURBANCES Sulfa (Sulfonamide Antibiotics) Allergy (Unknown, Verified 10/22/22 10:49) nausea and vomiting sulfamethoxazole [From BACTRIM] Allergy (Unknown, Verified 10/22/22 10:49) sweats felt like she will faint trimethoprim [From BACTRIM] Allergy (Unknown, Verified 10/22/22 10:49) sweats felt like she will faint Medication List - Last Reconciled 10/22/22 by Dwight Kimball MD lisinopril 10 mg PO DAILY Do you need a note to return to daycare/school/sports/work: Yes HPI EP, Dizziness, BP Med review HPI Details 42-year-old female presents to the office for a sick visit. Patient is requesting a refill her blood pressure medications. She has not seen her primary care provider for more than a year and he is not able to get it from from them. She reports some anxiety as she has been out of medication for the past few days. [facility] Medical History Annual physical exam Anxiety Fibroids GERD (gastroesophageal reflux disease) HTN (hypertension) Hyperlipidemia IBS (irritable bowel syndrome) Kidney stones Migraine aura without headache Subcutaneous mass of left lower leg Surgical History History of lithotripsy History of skin cancer Family History Father CVD (cardiovascular disease) Mother No problems noted. Maternal Aunt Breast cancer Brother No problems noted. Social History Housing: House Alcohol intake: current Alcohol intake frequency: a few times a week Patient Tobacco Use Status: Current someday Tobacco user (15 years ago) e-Cigarette/Vaping Use: Never Used Current occupational status: employed Cognitive needs: No Hearing needs: No Vision needs: No Physical Exam Vital Signs: Last Vital Signs Temp 97.7 F 10/22/22 10:06 Pulse 76 10/22/22 10:06 BP 132/78 10/22/22 10:06 Pulse Ox 97 10/22/22 10:06 BMI result Body Mass Index 25.0 Const General: cooperative and healthy appearing Nutritional Appearance: well nourished Orientation/consciousness: patient oriented x3 Limitations: no limitations HEENT Head: Yes normal to inspection Eyes General: appearance normal, both eyes and all related structures Neck Neck: Yes normal visual inspection Chest Chest palpation & inspection: normal palpation of entire chest wall Resp Effort & Inspection: normal respiratory effort Neuro General: patient oriented x3 Assessment & Plan Assessment & Plan (1) HTN (hypertension): Code(s): I10 - Essential (primary) hypertension Plan: Thirty day refill for the medication was given. Patient was encouraged to follow-up with her primary care provider and get regular prescriptions and healthcare. Medications: Refilled lisinopril schedule next PCP appt for future refills 10 mg PO DAILY 30 tabs 0RF Coding Level of Care Code Est Pt Level 4 (45026) Diagnoses HTN (hypertension) I10
== END 2022-10-22 10:52 | disposition home or self-care (01) ==
PROVIDERS: PCP Internal Medicine; Visit Provider Internal Medicine
DX: I10 Essential (primary) hypertension (principal)
CPT/HCPCS: 99214

== ENCOUNTER 2023-01-07 12:43 | Outpatient (AMB) | payer OTHER, SELFPAY ==
[2023-01-07 12:59] VITALS: BP 122/74; PULSE 87; O2SAT 98; BMI 24.6
--- NOTE | 2023-01-07 12:59 | A.OFFPC_ITS ---
Vital Signs 01/07/23 12:59 Height 5 ft 3 in Weight 139 lb BMI 24.6 BP 122/74 Blood Pressure Location Lt brachial Position Sitting Pulse 87 Pulse Source Pulse Oximeter Pulse Oximetry (%) 98 Oxygen Delivery Method Room Air Intake Visit Reasons: PE Intake Note: Pt is here today for PE. Allergies Iodinated Contrast Media [CONTRAST, IV] Allergy (Severe, Verified 01/07/23 13:14) SHORTNESS OF BREATH nut - unspecified [nut] Allergy (Severe, Verified 01/07/23 13:14) SHOCK latex [LATEX] Allergy (Intermediate, Verified 01/07/23 13:14) RASH amoxicillin [AMOXICILLIN] Allergy (Unknown, Verified 01/07/23 13:14) DYSPNEA, vision loss penicillin G Allergy (Unknown, Verified 01/07/23 13:14) unknown Penicillins [PCN] Allergy (Unknown, Verified 01/07/23 13:14) VISUAL DISTURBANCES Sulfa (Sulfonamide Antibiotics) Allergy (Unknown, Verified 01/07/23 13:14) nausea and vomiting sulfamethoxazole [From BACTRIM] Allergy (Unknown, Verified 01/07/23 13:14) sweats felt like she will faint trimethoprim [From BACTRIM] Allergy (Unknown, Verified 01/07/23 13:14) sweats felt like she will faint Medication List - Last Reconciled 01/07/23 by Hiral Calix MD lisinopril 10 mg PO DAILY Tobacco use date assessed: 01/07/23 Dental Screening Dental Screen Date: 01/07/23 Did you have a dental visit in the last 12 months?: Yes Did you have a dental problem in the last 6 months where you did not have access to dental care?: No Was dental information given to patient?: Patient has dentist HPI PE HPI Details Patient presents for physical Aggravating or associated factors / Treatment 5 v b PFSH Medical History (Updated 01/07/23 @ 13:41 by Hiral Calix MD) Hyperlipidemia HTN (hypertension) Subcutaneous mass of left lower leg Annual physical exam Anxiety Migraine aura without headache Kidney stones GERD (gastroesophageal reflux disease) Fibroids IBS (irritable bowel syndrome) Surgical History History of skin cancer History of lithotripsy Family History Father CVD (cardiovascular disease) Mother No problems noted. Maternal Aunt Breast cancer Brother No problems noted. Social History Housing: House Alcohol intake: current Alcohol intake frequency: a few times a week Patient Tobacco Use Status: Current someday Tobacco user (15 years ago) e-Cigarette/Vaping Use: Never Used Current occupational status: employed Cognitive needs: No Hearing needs: No Vision needs: No Questionnaire PHQ-9 Over the last 2 weeks, how often have you been bothered by any of the following problems? 1. Little interest or pleasure in doing things: not at all 2. Feeling down, depressed, or hopeless: not at all 3. Trouble falling or staying asleep, or sleeping too much: not at all 4. Feeling tired or having little energy: not at all 5. Poor appetite or overeating: not at all 6. Feeling bad about yourself - or that you are a failure or have let yourself or your family down: not at all 7. Trouble concentrating on things, such as reading the newspaper or watching television: not at all 8. Moving or speaking so slowly that other people could have noticed. Or the opposite - being so fidgety or restless that you have been moving around a lot more than usual: not at all 9. Thoughts that you would be better off or of hurting yourself in some way: not at all Total score: 0 Depression Screening Interpretation: Negative Depression Screening Done: Yes Source: Developed by Drs. Pawan Stephens, Carli Winn, Fabiano Garza and colleagues, with an educational eli from [employer]. Thrive Questionnaire Date Thrive assessed: 01/07/23 I am a: Patient What is your living situation today?: I have a steady place to live Within the past 12 months, did the food you bought not last and you didn't have the money to get more?: Never true Within the past 12 months, did you worry whether your food would run out before you got money to buy more?: Never true Do you have trouble paying for medicines?: No Do you have trouble getting transportation to medical appointments?: No Do you have trouble paying your heating and electricity bill?: No Do you have trouble taking care of your child, family member or friend?: No Do you have trouble with day-to-day activities such as bathing, preparing meals, shopping, managing finances, etc.?: No Are you currently unemployed and looking for a job?: No Are you interested in more education?: No Please select the resources that you would like help with: None AUDIT C Alcohol Use Questionnaire (AUDIT-C) 1. How often do you have a drink containing alcohol?: 2-4 times a month 2. How many drinks containing alcohol do you have on a typical day when you are drinking?: 1 or 2 3. How often do you have six or more drinks on one occasion?: Never Total Score: 2 RODOLFO-7 AMB Questionnaire RODOLFO-7 Date RODOLFO - 7 assessed: 01/07/23 Feeling nervous, anxious, or on edge: 0 = Not at all Not being able to stop or control worryin = Not at all Worrying too much about different things: 0 = Not at all Trouble relaxin = Not at all Being so restless that it is hard to sit still: 0 = Not at all Becoming easily annoyed or irritable: 0 = Not at all Feeling afraid as if something awful might happen: 0 = Not at all Total RODOLFO-7 score (0-4 normal; 5-9 mild; 10-14 moderate; 15-21 severe): 0 Source: Developed by Drs. Pawan Stephens, Carli Winn, Fabiano Garza and colleagues, with an educational eli from [employer]. Review of Systems Const All systems reviewed & are unremarkable except as noted in HPI and below Reports no additional complaints Eyes Reports no additional complaints ENT Reports no additional complaints Card Reports no additional complaints Resp Reports no additional complaints GI Reports no additional complaints Reports no additional complaints Musc Reports no additional complaints Neuro Reports no additional complaints Physical exam (Primary Care) Vital Signs: Last Vital Signs Pulse 87 01/07/23 12:59 BP 122/74 01/07/23 12:59 Pulse Ox 98 01/07/23 12:59 Oxygen Delivery Method Room Air 01/07/23 12:59 BMI result Body Mass Index 24.6 Tobacco/Smoking Status: Tobacco use Status Tobacco use date assessed 01/07/23 01/07/23 13:17 Patient Tobacco Use Status Current someday Tobacco (15 01/07/23 12:59 years ago) e-Cigarette/Vaping Use Never Used 01/07/23 12:59 PHQ-9: PHQ-9 Score PHQ-9: Total score 0 01/07/23 13:18 Depression Screening Interpretation: Negative Thrive Assessment: Date of Thrive Assessment Date Thrive assessed 01/07/23 01/07/23 13:18 Const General: no acute distress HENMT Head: Yes normal to inspection Ears: hearing grossly normal bilaterally Face and sinus: Yes normal facial exam Eyes General: appearance normal, both eyes and all related structures Neck Neck: Yes no lymphadenopathy Resp Effort & Inspection: normal respiratory effort Auscultation: clear to auscultation bilaterally Cardio Rhythm: regular rhythm Heart sounds: S1 normal heart sound present and S2 normal heart sound present GI Inspection: Yes normal to inspection Palpation (GI): Soft to palpation Auscultation: normal bowel sounds Assessment and Plan Assessment & Plan (1) Hyperlipidemia: Code(s): E78.5 - Hyperlipidemia, unspecified Plan: Continue low-cholesterol diet , return for fasting blood (2) Annual physical exam: Code(s): Z00.00 - Encounter for general adult medical examination without abnormal findings Plan: Well-balanced diet and regular physical activity discussed with the patient (3) Abnormal Pap smear of cervix: Comment: [facility] [employer], s/p colposcopy F/U regularly Code(s): R87.619 - Unspecified abnormal cytological findings in specimens from cervix uteri (4) HTN (hypertension): Code(s): I10 - Essential (primary) hypertension Plan: Continue lisinopril 10 mg a day , follow-up in 6 months Orders: Orders Complete Blood Count Auto Diff Today E78.5 - Hyperlipidemia, unspecified, Z00.00 - Encounter for general adult medical examination without abnormal findings Vitamin D 25-OH Total Today E78.5 - Hyperlipidemia, unspecified, Z00.00 - Encounter for general adult medical examination without abnormal findings Comprehensive [place]. Panel Fast Today E78.5 - Hyperlipidemia, unspecified, Z00.00 - Encounter for general adult medical examination without abnormal findings Lipid Panel Today E78.5 - Hyperlipidemia, unspecified, Z00.00 - Encounter for general adult medical examination without abnormal findings Referrals Gastroenterology Referral Z00.00 - Encounter for general adult medical examinat ion without abnormal findings Medications: Refilled lisinopril 10 mg PO DAILY 90 tabs 3RF Coding Level of Care Code Est Pt Prev Care 40-64y(66973) Diagnoses Hyperlipidemia E78.5 Annual physical exam Z00.00 Abnormal Pap smear of cervix R87.619 HTN (hypertension) I10
== END 2023-01-07 13:58 | disposition home or self-care (01) ==
PROVIDERS: PCP Internal Medicine; Visit Provider Internal Medicine
DX: E78.5 Hyperlipidemia, unspecified (principal); Z00.00 Encounter for general adult medical examination without abnormal findings; R87.619 Unspecified abnormal cytological findings in specimens from cervix uteri; I10 Essential (primary) hypertension
CPT/HCPCS: 99396

== ENCOUNTER 2023-07-05 10:09 | Outpatient (REF) | payer OTHER, SELFPAY ==
[2023-07-05 13:30] LABS: MANUAL DIFF FLAG NO
[2023-07-05 13:38] LABS: Basophils Absolute Auto 0.1 X10*3/uL (0.0-0.2); Basophils Percent Auto 0.6 % (0-2); Eosinophils Absolute Auto 0.1 X10*3/uL (0.0-0.4); Eosinophils Percent Auto 0.6 % (0-4); Hemoglobin 11.3 g/dl (12.0-16.0); Imm Gran Abs Auto 0.04 X10*3/uL (0.00-0.03); Imm Gran Pct Auto 0.4 % (0.0-0.4); Lymphocytes Absolute Auto 1.7 X10*3/uL (1.2-4.9); Lymphocytes Percent Auto 17.4 % (20-40); Mean Corpuscular HGB Conc 32.3 g/dl (31.0-35.0); Mean Corpuscular Hemoglobin 27.4 pg (27.0-33.0); Mean Platelet Volume 11.3 fL (9.4-12.3); Monocytes Absolute Auto 0.6 X10*3/uL (0.1-1.2); Monocytes Percent Auto 5.6 % (2-11); Neutrophils Absolute Auto 7.4 x10*3/uL (2.0-8.3); Neutrophils Percent Auto 75.4 % (45-73); Platelet Count 272 X10*3/uL (160-400); Red Blood Count 4.12 X10*6/uL (4.20-5.50); Red Cell Distribution Width 15.5 % (11.0-16.0); White Blood Count 9.8 X10*3/uL (4.8-10.8)
[2023-07-05 14:12] LABS: Alanine Aminotransferase 8 U/L (0-31); Albumin Level 4.4 g/dL (3.5-5.0); Alkaline Phosphatase 61 U/L (39-117); Anion Gap 13 (12-20); Aspartate Amino Transferase 12 U/L (5-31); Bilirubin Total 0.4 mg/dL (0.0-1.0); Blood Urea Nitrogen 6 mg/dL (9-16); Calcium 9.3 mg/dL (8.4-10.2); Carbon Dioxide 26 mmol/L (22-29); Chloride 102 mmol/L (96-108); Cholesterol 229 mg/dL (<200); Estimated Glomerular Filt Rate > 60; Glucose Fasting 88 mg/dL (60-99); HDL Cholesterol 59 mg/dL (>40); LDL Cholesterol Calculated 152 mg/dL (<100); Potassium 3.8 mmol/L (3.3-5.1); Sodium 137 mmol/L (135-145); Total Protein 7.5 g/dL (6.5-8.0); Triglycerides 92 mg/dL (<150)
[2023-07-05 14:20] LABS: Vitamin D 25-OH Total 22.6 ng/mL (>30)
== END 2023-07-05 10:10 | disposition home or self-care (01) ==
LOC: HO.HMGCLDS 10:09
PROVIDERS: PCP Internal Medicine; Visit Provider Internal Medicine
DX: E78.5 Hyperlipidemia, unspecified (principal); Z00.00 Encounter for general adult medical examination without abnormal findings
CPT/HCPCS: 36415; 80053; 80061; 82306; 85025

== ENCOUNTER 2023-07-08 13:46 | Outpatient (AMB) | payer OTHER, SELFPAY ==
--- NOTE | 2023-07-08 13:58 | A.OFFPC_ITS ---
Vital Signs 07/08/23 13:59 Height 5 ft 3 in Weight 134 lb BMI 23.7 BP 122/80 Blood Pressure Location Lt brachial Position Sitting Pulse 95 Pulse Source Pulse Oximeter Pulse Oximetry (%) 98 Oxygen Delivery Method Room Air Intake Visit Reasons: 6 month fu Intake Note: Pt is here today for 6 months follow up visit on labs. Allergies Iodinated Contrast Media [CONTRAST, IV] Allergy (Severe, Verified 07/08/23 14:01) SHORTNESS OF BREATH nut - unspecified [nut] Allergy (Severe, Verified 07/08/23 14:01) SHOCK latex [LATEX] Allergy (Intermediate, Verified 07/08/23 14:01) RASH amoxicillin [AMOXICILLIN] Allergy (Unknown, Verified 07/08/23 14:01) DYSPNEA, vision loss penicillin G Allergy (Unknown, Verified 07/08/23 14:01) unknown Penicillins [PCN] Allergy (Unknown, Verified 07/08/23 14:01) VISUAL DISTURBANCES Sulfa (Sulfonamide Antibiotics) Allergy (Unknown, Verified 07/08/23 14:01) nausea and vomiting sulfamethoxazole [From BACTRIM] Allergy (Unknown, Verified 07/08/23 14:01) sweats felt like she will faint trimethoprim [From BACTRIM] Allergy (Unknown, Verified 07/08/23 14:01) sweats felt like she will faint Medication List - Last Reconciled 07/08/23 by Hiral Calix MD lisinopril 10 mg PO DAILY Tobacco use date assessed: 07/08/23 Dental Screening Dental Screen Date: 07/08/23 Did you have a dental visit in the last 12 months?: Yes Did you have a dental problem in the last 6 months where you did not have access to dental care?: No Was dental information given to patient?: Patient has dentist HPI 6 month fu HPI Details Patient presents for the follow-up on hypertension, controlled on lisinopril. She has not fallen low-cholesterol diet for hyperlipidemia [facility] Medical History Hyperlipidemia HTN (hypertension) Subcutaneous mass of left lower leg Annual physical exam Anxiety Migraine aura without headache Kidney stones GERD (gastroesophageal reflux disease) Fibroids IBS (irritable bowel syndrome) Surgical History History of skin cancer History of lithotripsy Family History Father CVD (cardiovascular disease) Mother No problems noted. Maternal Aunt Breast cancer Brother No problems noted. Social History Housing: House Alcohol intake: current Alcohol intake frequency: a few times a week Patient Tobacco Use Status: Current someday Tobacco user (15 years ago) Tobacco use type: Cigarette Cigarettes Per Day: 2 e-Cigarette/Vaping Use: Never Used service: No Current occupational status: employed Cognitive needs: No Hearing needs: No Vision needs: No Questionnaire Thrive Questionnaire Date Thrive assessed: 01/07/23 AUDIT C Alcohol Use Questionnaire (AUDIT-C) 1. How often do you have a drink containing alcohol?: 2-4 times a month 2. How many drinks containing alcohol do you have on a typical day when you are drinking?: 1 or 2 3. How often do you have six or more drinks on one occasion?: Never Total Score: 2 RODOLFO-7 AMB Questionnaire RODOLFO-7 Date RODOLFO - 7 assessed: 01/07/23 Source: Developed by Drs. Pawan Stephens, Carli Winn, Fabiano Garza and colleagues, with an educational eli from [employer]. Review of Systems Const All systems reviewed & are unremarkable except as noted in HPI and below ENT Reports no additional complaints Card Reports no additional complaints Resp Reports no additional complaints GI Reports no additional complaints Reports no additional complaints Physical exam (Primary Care) Vital Signs: Last Vital Signs Pulse 95 07/08/23 13:59 BP 122/80 07/08/23 13:59 Pulse Ox 98 07/08/23 13:59 Oxygen Delivery Method Room Air 07/08/23 13:59 BMI result Body Mass Index 23.7 Tobacco/Smoking Status: Tobacco use Status Tobacco use date assessed 07/08/23 07/08/23 14:05 Patient Tobacco Use Status Current someday Tobacco (15 07/08/23 13:59 years ago) Tobacco use type Cigarette 07/08/23 14:05 e-Cigarette/Vaping Use Never Used 07/08/23 13:59 Thrive Assessment: Date of Thrive Assessment Date Thrive assessed 01/07/23 07/08/23 13:59 Const General: no acute distress [facility] General nose exam: Normal external nose present Throat: Yes posterior oropharynx normal Resp Effort & Inspection: normal respiratory effort Auscultation: clear to auscultation bilaterally Cardio Rhythm: regular rhythm Heart sounds: S1 normal heart sound present and S2 normal heart sound present GI Inspection: Yes normal to inspection Palpation (GI): Soft to palpation Percussion: Yes normal to percussion Assessment and Plan Assessment & Plan (1) HTN (hypertension): Code(s): I10 - Essential (primary) hypertension Plan: Continue lisinopril (2) Hyperlipidemia: Code(s): E78.5 - Hyperlipidemia, unspecified Plan: Low-cholesterol diet and increase exercise discussed with the patient, she will return in 6 months with a fasting labs before (3) Anemia: Code(s): D64.9 - Anemia, unspecified Plan: Check iron Orders: Orders UA w Microscopic 6 Months D64.9 - Anemia, unspecified, E78.5 - Hyperlipidemia, unspecified, I10 - Essential (primary) hypertension Vitamin B12 and Folate 6 Months D64.9 - Anemia, unspecified, E78.5 - Hyperlipidemia, unspecified, I10 - Essential (primary) hypertension Comprehensive [place]. Panel Fast 6 Months D64.9 - Anemia, unspecified, E78.5 - Hyperlipidemia, unspecified, I10 - Essential (primary) hypertension Complete Blood Count Auto Diff 6 Months D64.9 - Anemia, unspecified, E78.5 - Hyperlipidemia, unspecified, I10 - Essential (primary) hypertension Lipid Panel 6 Months D64.9 - Anemia, unspecified, E78.5 - Hyperlipidemia, unspecified, I10 - Essential (primary) hypertension TSH reflex Free T4 6 Months D64.9 - Anemia, unspecified, E78.5 - Hyperlipidemia, unspecified, I10 - Essential (primary) hypertension IRON PROFILE 6 Months D64.9 - Anemia, unspecified, E78.5 - Hyperlipidemia, unspecified, I10 - Essential (primary) hypertension Coding Level of Care Code Est Pt Level 3 (28053) Diagnoses HTN (hypertension) I10 Hyperlipidemia E78.5 Anemia D64.9
[2023-07-08 13:59] VITALS: BP 122/80; PULSE 95; O2SAT 98; BMI 23.7
== END 2023-07-08 14:34 | disposition home or self-care (01) ==
PROVIDERS: PCP Internal Medicine; Visit Provider Internal Medicine
DX: I10 Essential (primary) hypertension (principal); E78.5 Hyperlipidemia, unspecified; D64.9 Anemia, unspecified
CPT/HCPCS: 99213

== ENCOUNTER 2023-11-26 10:39 | Outpatient (AMB) | payer OTHER, SELFPAY ==
--- NOTE | 2023-11-26 10:41 | A.OFFVIS_ITS ---
Vital Signs 3 11/26/23 11:01 Height 5 ft 3 in Weight 143 lb 4.807 oz BMI 25.4 BP 144/74 H Blood Pressure Location Lt brachial Position Sitting Pulse 85 Intake Visit Reasons: Colonoscopy Screening Intake Note: Patient in office today as a new patient with colonoscopy screening. CC: Patient reports having issues with IBS, she states constipation fluctuates with diarrhea. She reports heartburn an acid reflux sometimes and she takes Pepcid PRN. 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 It Intern Required: No Accompanied by: Self / Same As Patient Allergies Iodinated Contrast Media [CONTRAST, IV] Allergy (Severe, Verified 11/26/23 11:13) SHORTNESS OF BREATH nut - unspecified [nut] Allergy (Severe, Verified 11/26/23 11:13) SHOCK latex [LATEX] Allergy (Intermediate, Verified 11/26/23 11:13) RASH amoxicillin [AMOXICILLIN] Allergy (Unknown, Verified 11/26/23 11:13) DYSPNEA, vision loss penicillin G Allergy (Unknown, Verified 11/26/23 11:13) unknown Penicillins [PCN] Allergy (Unknown, Verified 11/26/23 11:13) VISUAL DISTURBANCES Sulfa (Sulfonamide Antibiotics) Allergy (Unknown, Verified 11/26/23 11:13) nausea and vomiting sulfamethoxazole [From BACTRIM] Allergy (Unknown, Verified 11/26/23 11:13) sweats felt like she will faint trimethoprim [From BACTRIM] Allergy (Unknown, Verified 11/26/23 11:13) sweats felt like she will faint HPI HPI Colonoscopy Screening: Details: 43-year-old female here for preprocedural meeting to discuss a screening colonoscopy. She is referred by Hiral Calix MD PMX Hypertension High cholesterol Nephrolithiasis Migraines Fibroids IBS cervical dysphasia s/p removal * SURGICAL HISTORY Skin cancer removal Lithotripsy COlposcopy LEEP procedure [place] teeth removal * ALLERGIES IV contrast Latex Amoxicillin Penicillin Sulfa [place] teeth removal * [place] LABS: Laboratory Tests 07/05/23 12:24 WBC 9.8 Hgb 11.3 L Hct 35.0 L MCV 85.0 MCH 27.4 Plt Count 272 Estimated GFR > 60 Total Bilirubin 0.4 AST 12 ALT 8 Alkaline Phosphatase 61 TODAY'S VISIT This is her first colonoscopy and she has a known hx of hemorrhoids. SHe has admitted anxiety about the procedure despite reassurance from her mother and friends. She has had friends who of CRC. She denies any cardiac or respiratory problems. She says she is sensitive to past anesthesia as she took a long time to come out of it. No ID problems. She thinks her father had polyps removed. I ask her to see if she can clarify this history and her mother's history. [facility] Medical History COVID-19 Tenderness of right lower extremity Feeling of chest tightness Annual physical exam Bilateral otitis media Hyperlipidemia HTN (hypertension) Subcutaneous mass of left lower leg Anxiety Migraine aura without headache Kidney stones GERD (gastroesophageal reflux disease) Fibroids IBS (irritable bowel syndrome) Surgical History History of skin cancer History of lithotripsy Family History Father CVD (cardiovascular disease) Mother No problems noted. Maternal Aunt Breast cancer Brother No problems noted. Social History Housing: House Alcohol intake: current Alcohol intake frequency: a few times a week Patient Tobacco Use Status: Current someday Tobacco user (15 years ago) Tobacco use type: Cigarette Cigarettes Per Day: 2 e-Cigarette/Vaping Use: Never Used service: No Current occupational status: employed Cognitive needs: No Hearing needs: No Vision needs: No Review of Systems Const Denies fatigue, Denies fever(s), Denies night sweats, Denies poor appetite and Denies weight loss ENT Reports Normal hearing present, Denies dental pain, Denies dysphagia, Denies hearing loss, Denies mouth pain, Denies odynophagia, Denies throat swelling, Denies tongue swelling and Reports other (Dentition adequate) Card Reports no additional complaints Resp Reports no additional complaints GI Details: Denies abdominal pain, Denies melena, Denies bloating, Denies hematochezia, Denies constipation, Denies GI cramping, Denies dysphagia, Denies excessive flatus, Denies early satiety, Denies heartburn, Denies diarrhea, Denies nausea, Denies odynophagia, Denies vomiting and Denies hematemesis Skin/Breast Denies pruritus, Denies lesions, Denies rash and Denies jaundice Neuro Reports Normal hearing present and Denies Abnormal speech present Psych Reports anxiety Endo Denies fatigue Aller/Immun Denies throat swelling and Denies tongue swelling Physical Exam Vital Signs: Last Vital Signs Pulse 85 11/26/23 11:01 BP 144/74 H 11/26/23 11:01 BMI result Body Mass Index 25.4 Const General: cooperative, no acute distress, well developed and well groomed Nutritional Appearance: average body habitus and well nourished Orientation/consciousness: oriented to person, oriented to place and oriented to time Limitations: No language barrier HEENT Head: Yes normocephalic and Yes atraumatic Eyes General: appearance normal, both eyes and all related structures Pupils: Equal, round and reactive pupils present Neck Neck: Yes normal visual inspection and Yes no lymphadenopathy Thyroid: Thyroid normal Resp Effort & Inspection: normal respiratory effort and able to speak in complete sentences Auscultation: clear to auscultation bilaterally Cardio Rate: regular rate Rhythm: regular rhythm Heart sounds: Normal, physiologic split S2 sound present Peripheral pulses: radial pulses present and posterior tibial pulses present GI Inspection: No distended and No Abdominal panniculus present Palpation (GI): Soft to palpation, nontender, no guarding, not rigid and No hepatosplenomegaly present Percussion: Yes normal to percussion Auscultation: normal bowel sounds Rectal Exam - Female: deferred Abdomen image: 2 1. old BB ring Skin General skin exam: no rashes or lesions noted, turgor normal, skin not dry, no jaundice, No spider nevi and no striae Rashes: no rashes Nails: normal Neuro General: oriented to person, oriented to place and oriented to time Cranial nerves: Yes Equal, round and reactive pupils present and Yes Normal hearing present Speech: No Abnormal speech present Extrem General: Yes normal to inspection, No clubbing, No cyanosis and No edema Psych Appearance: grossly normal and well kempt Mental Status: mental status grossly normal Speech and movement: Normal speech and movement present Affect: normal affect Attitude: cooperative Thought process: Normal thought process present and not confabulating Thought content: Normal thought content present Insight: Fair insight present (Psych) Judgement: Fair judgement present (Psych) Assessment & Plan Assessment & Plan (1) Pre-op examination: Code(s): Z01.818 - Encounter for other preprocedural examination Category: Medical (2) Family history of polyps in the colon: Comment: father Code(s): Z83.719 - Family history of colon polyps, unspecified Category: Medical Plan This is her first colonoscopy and she has a known hx of hemorrhoids. SHe has admitted anxiety about the procedure despite reassurance from her mother and friends. She has had friends who of CRC. She denies any cardiac or respiratory problems. She says she is sensitive to past anesthesia as she took a long time to come out of it. No ID problems. She thinks her father had polyps removed. I ask her to see if she can clarify this history and her mother's history. Medications: New 2 peg 3350-electrolytes 236-22.74-6.74 -5.86 gram (Golytely) until fecal effluent is clear; do not exceed a total volume of 2,000 mL 240 mL PO Q10M 4,000 mL 0RF 1 day Z12.11 - Encounter for screening for malignant neoplasm of colon sennosides (Senna Laxative) 8.6 mg PO BEDTIME 6 tabs 0RF Coding Level of Care Code New Pt Level 3 (18409) Diagnoses Pre-op examination Z01.818 Family history of polyps in the colon Z83.719
[2023-11-26 11:01] VITALS: BP 144/74; PULSE 85; BMI 25.4
== END 2023-11-26 11:39 | disposition home or self-care (01) ==
PROVIDERS: PCP Internal Medicine; Visit Provider Nurse Practitioner
DX: Z01.818 Encounter for other preprocedural examination (principal); Z12.11 Encounter for screening for malignant neoplasm of colon; Z83.719 Family history of colon polyps, unspecified
CPT/HCPCS: S0285

== ENCOUNTER → 2023-11-26 10:39 | Outpatient (BNVA) | payer OTHER, SELFPAY | PROVIDERS: PCP Internal Medicine; Visit Provider Nurse Practitioner ==

== ENCOUNTER 2023-11-28 08:39 | Outpatient (AMB) | payer OTHER, SELFPAY ==
--- NOTE | 2023-11-28 08:54 | AM.OFFWIN_ITS ---
Intake Vital Signs 11/28/23 09:00 Height 5 ft 3 in Weight 144 lb BMI 25.5 BP 146/88 H Blood Pressure Location Lt brachial Position Sitting Pulse 87 Pulse Source Pulse Oximeter Temp 98.3 F Temp Source Oral Pulse Oximetry (%) 100 Oxygen Delivery Method Room Air Intake Visit Reasons: EP-body rash, dizziness, heart yeh Intake Note: Pt is here today for body rash, dizziness, and heart yeh. Pt states red bumps on stomach. At home covid test is negative. Patient Tobacco Use Status: Current someday Tobacco user (15 years ago) Allergies Iodinated Contrast Media [CONTRAST, IV] Allergy (Severe, Verified 11/28/23 09:01) SHORTNESS OF BREATH nut - unspecified [nut] Allergy (Severe, Verified 11/28/23 09:) SHOCK latex [LATEX] Allergy (Intermediate, Verified 11/28/23 09:) RASH amoxicillin [AMOXICILLIN] Allergy (Unknown, Verified 11/28/23 09:01) DYSPNEA, vision loss penicillin G Allergy (Unknown, Verified 11/28/23 09:) unknown Penicillins [PCN] Allergy (Unknown, Verified 11/28/23 09:01) VISUAL DISTURBANCES Sulfa (Sulfonamide Antibiotics) Allergy (Unknown, Verified 11/28/23 09:01) nausea and vomiting sulfamethoxazole [From BACTRIM] Allergy (Unknown, Verified 11/28/23 09:) sweats felt like she will faint trimethoprim [From BACTRIM] Allergy (Unknown, Verified 11/28/23 09:01) sweats felt like she will faint Do you need a note to return to daycare/school/sports/work: Yes HPI EP-body rash, dizziness, heart yeh HPI Details This note is constructed using voice recognition software. While every effort has been made to ensure accuracy, water attendant errors may have been included. The patient is a 43 year old female who presents to the clinic today with rash and heartburn since Saturday. She notes that she has an extensive list of allergies, but does not know of any new exposures to anything that has specifically touched the area of the rash. The rash started on her abdomen and has spread around her entire torso. The rash is flat and red per patient, and has had some intermittent warmth to it, however not consistent. She notes that she started on some Benadryl and that seems to help improve it some, however it comes back each day. She notes that this did start after she had been to a winery and did consume some wine, however she did not have the wine after that day. She has also changed her detergent recently but it has not been used on the clothing she has worn since the onset of the rash or even prior to the rash. She has had no additional exposures including no new soaps, lotions, perfumes, or any other food consumptions. She notes a burning sensation in her epigastric region, which started about the same time as the rash. [facility]LY [facility] Medical History COVID-19 Tenderness of right lower extremity Feeling of chest tightness Annual physical exam Bilateral otitis media Hyperlipidemia HTN (hypertension) Subcutaneous mass of left lower leg Anxiety Migraine aura without headache Kidney stones GERD (gastroesophageal reflux disease) Fibroids IBS (irritable bowel syndrome) Surgical History History of skin cancer History of lithotripsy Family History Father CVD (cardiovascular disease) Mother No problems noted. Maternal Aunt Breast cancer Brother No problems noted. Social History Housing: House Alcohol intake: current Alcohol intake frequency: a few times a week Patient Tobacco Use Status: Current someday Tobacco user (15 years ago) Tobacco use type: Cigarette Cigarettes Per Day: 2 e-Cigarette/Vaping Use: Never Used service: No Current occupational status: employed Cognitive needs: No Hearing needs: No Vision needs: No Review of Systems Const All systems reviewed & are unremarkable except as noted in HPI and below Physical Exam Vital Signs: Last Vital Signs Temp 98.3 F 11/28/23 09:00 Pulse 87 11/28/23 09:00 BP 146/88 H 11/28/23 09:00 Pulse Ox 100 11/28/23 09:00 Oxygen Delivery Method Room Air 11/28/23 09:00 BMI result Body Mass Index 25.5 Const General: cooperative, healthy appearing, comfortable, no acute distress and alert Orientation/consciousness: patient oriented x3 Limitations: no limitations HEENT Head: Yes normal to inspection and Yes normocephalic Ears: hearing grossly normal bilaterally General nose exam: Normal external nose present Face and sinus: Yes normal facial exam and Yes sinuses nontender Mouth: Normal oral and palatal mucosa present and tongue normal Teeth and gingiva: dentition normal Throat: Yes posterior oropharynx normal Eyes General: appearance normal, both eyes and all related structures Neck Neck: Yes normal visual inspection, Yes full ROM and Yes no lymphadenopathy Resp Effort & Inspection: normal respiratory effort and able to speak in complete sentences Auscultation: clear to auscultation bilaterally Cardio Jugular venous distension: no JVD Palpation: normal PMI Rate: regular rate Heart sounds: S1 normal heart sound present, S2 normal heart sound present, no click, no gallops, no murmurs and no rubs GI Inspection: Yes normal to inspection Palpation (GI): Soft to palpation and Tenderness to palpation present (GI) in the epigastrum (mild) Percussion: Yes normal to percussion Auscultation: normal bowel sounds Skin Other: Petechial on entire torso, no surrounding erythema, warmth, or discharge. General skin exam: elasticity normal and turgor normal Neuro General: patient oriented x3 Psych Appearance: grossly normal Mental Status: mental status grossly normal Speech and movement: Normal speech and movement present Affect: normal affect Assessment & Plan Assessment & Plan (1) Dermatitis: Code(s): L30.9 - Dermatitis, unspecified Plan: Etiology unclear, likely related to some new allergy that we have not identified. Advised patient to refill her EpiPen and reviewed proper use of this for any symptoms of anaphylaxis. Additionally I advised her to take Benadryl daily for at least the next 2 weeks as well as Pepcid for the antihistamine effects. We will prescribe prednisone as well to help improve the symptoms. Advised patient to follow up with worsening or failure to resolve. (2) Heartburn: Code(s): R12 - Heartburn Plan: We will start patient on Pepcid for both antihistamine effects as well as with the heartburn. Advised patient to avoid foods with in 2-3 hours of lying down, excess carbonated beverages, and acidic foods to reduce symptoms. Plan See above for full details and plan. Medications: New prednisone 40 mg (2 x 20 mg) PO DAILY 5 days 10 tabs 0RF Coding Level of Care Code Est Pt Level 4 (36772) Diagnoses Dermatitis L30.9 Heartburn R12 Time Spent (min) 25
[2023-11-28 09:00] VITALS: BP 146/88; PULSE 87; TEMP 36.8; O2SAT 100; BMI 25.5
== END 2023-11-28 10:45 | disposition home or self-care (01) ==
PROVIDERS: PCP Internal Medicine; Visit Provider Registered Nurse
DX: L30.9 Dermatitis, unspecified (principal); R12 Heartburn

== ENCOUNTER → 2023-11-28 08:39 | Outpatient (BNVA) | payer OTHER, SELFPAY | PROVIDERS: PCP Internal Medicine | DX: L30.9 Dermatitis, unspecified (principal); R12 Heartburn ==